=== PATIENT | female | born 1975 ===

== ENCOUNTER 2020-05-06 10:15 | Inpatient (IN) | payer OTHER ==
[~2020-05-06] VITALS: Ht 154.9 cm; Wt 68.0 kg
[2020-05-17] MEDS ORDERED: HYOSCYAMINE0.125 M1 SL (09:53)
[2020-05-17] MEDS ORDERED: OXYC1TAB9 PO (09:54)
[2020-05-17] MEDS ORDERED: INTESTINEX680 M1 PO (09:54)
== END 2020-05-17 10:55 | disposition home or self-care (01) | DRG 331 ==
LOC: SURH 05-12 06:58 → O/R 05-12 06:58 → SURH 05-12 10:15
PROVIDERS: ADMIT Surgery; ATTEND Surgery
PROC: 0DJD8ZZ Inspection of Lower Intestinal Tract, Via Natural or Artificial Opening Endoscopic (ICD-10-PCS; 2020-05-12)
PROC: 0DBN4ZZ Excision of Sigmoid Colon, Percutaneous Endoscopic Approach (ICD-10-PCS; principal; 2020-05-12 10:15)
PROC: B54CZZZ Ultrasonography of Left Lower Extremity Veins (ICD-10-PCS; 2020-05-13)
DX: K57.32 Diverticulitis of large intestine without perforation or abscess without bleeding (principal); M79.7 Fibromyalgia

== ENCOUNTER → 2022-04-04 | Outpatient (CLI) | payer OTHER ==
[~2022-04-04] MED LIST: HYOSCYAMINE0.125 M1 SL; INTESTINEX680 M1 PO; OXYC1TAB9 PO
== END | disposition home or self-care (01) ==
LOC: RAD 07:43
PROVIDERS: ATTEND Surgery
DX: K59.09 Other constipation (principal); K64.8 Other hemorrhoids; K57.30 Diverticulosis of large intestine without perforation or abscess without bleeding; D12.8 Benign neoplasm of rectum; K29.00 Acute gastritis without bleeding

== ENCOUNTER 2023-06-06 06:05 | Day surgery (SDC) | payer OTHER ==
[~2023-06-06] VITALS: Ht 154.9 cm; Wt 71.2 kg
[~2023-06-06 06:05] MED LIST changes: +ALZ SR CAPLET1 EACH PO; +CRESTOR5 MG PO; +FOLIC ACID1 MG PO; +HUMIRA40 MG/0.2; +MOBIC7.5 MG PO; +TRAMADOL HCL100 M1 PO; +TREXALL5 MG PO
[2023-06-06] MEDS ORDERED: CHLORHEXIDINE GLUCONATE 120 ML BOTTLE TOP ONE (09:11)
[2023-06-06] MEDS ORDERED: DIBUCAINE 15 GM OINT..GM. TUBE ONE (09:11)
[2023-06-06] MEDS ORDERED: METRONIDAZOLE/SODIUM CHLORIDE 500 MG/100 ML PIGGYBACK IV ONE ×2 (09:11→10:15)
[2023-06-06] MEDS ORDERED: CEFTRIAXONE SODIUM 2,000 MG VIAL ONE (09:11)
[2023-06-06] MEDS ORDERED: HEMOSTATIC MATRIX 1 KIT KIT TOP ONE (09:11)
[2023-06-06] MEDS ORDERED: BUPIVACAINE LIPOSOME/PF 266 MG/20 ML VIAL IJ ONE ×2 (09:15→10:15)
[2023-06-06] MEDS ORDERED: CEFTRIAXONE SODIUM 2,000 MG VIAL IV ONE (10:15)
[2023-06-06] MEDS ORDERED: CELECOXIB200 MG PO (10:34)
[2023-06-06] MEDS ORDERED: NEURONTIN300 MG PO (10:34)
[2023-06-06] MEDS ORDERED: TRAM1TAB98 PO (10:35)
== END 2023-06-06 17:00 | disposition home or self-care (01) ==
LOC: CIR.AMB 06:05
PROVIDERS: ATTEND Surgery
DX: K64.2 Third degree hemorrhoids (principal); K64.8 Other hemorrhoids; K62.5 Hemorrhage of anus and rectum; Z91.041 Radiographic dye allergy status; I10 Essential (primary) hypertension; Z20.822 Contact with and (suspected) exposure to COVID-19